=== PATIENT | female | born 1965 | race Caucasian/White ===

== ENCOUNTER → 2023-05-15 15:19 | Outpatient (BNVA) | payer SELFPAY | PROVIDERS: Visit Provider Emergency Medicine | DX: R35.0 Frequency of micturition (principal); N39.0 Urinary tract infection, site not specified | CPT/HCPCS: 81000; 87086 ==

== ENCOUNTER → 2023-12-22 14:26 | Outpatient (BNVA) | payer BC, MEDICAID, SELFPAY | PROVIDERS: Visit Provider Emergency Medicine | DX: R82.90 Unspecified abnormal findings in urine (principal); R39.9 Unspecified symptoms and signs involving the genitourinary system | CPT/HCPCS: 81000; 87086 ==

== ENCOUNTER → 2023-12-26 14:50 | Outpatient (BNVA) | payer BC, MEDICAID, SELFPAY | PROVIDERS: Visit Provider Nurse Practitioner Family | DX: R53.83 Other fatigue (principal) | CPT/HCPCS: 80053; 80061; 84443; 85025 ==

== ENCOUNTER → 2024-08-11 15:58 | Outpatient (BNVA) | payer BC, MEDICAID, SELFPAY | PROVIDERS: Visit Provider Emergency Medicine | DX: R39.9 Unspecified symptoms and signs involving the genitourinary system (principal); J02.9 Acute pharyngitis, unspecified | CPT/HCPCS: 81000; 87071; 87086; 87880 ==